=== PATIENT | male | born 1995 | race African-American/Black ===

== ENCOUNTER 2017-04-24 09:28 | Emergency (ER) | payer SELFPAY ==
[~2017-04-24] VITALS: Ht 180.3 cm; Wt 71.8 kg
[2017-04-24] MEDS ORDERED: HYDROCODONE/ACETAMINOPHEN 5-325 MG TABLET PO ONE (10:30)
[2017-04-24 12:25] VITALS: BP 135/79
== END 2017-04-24 12:30 | disposition home or self-care (01) ==
LOC: EMS 09:31
DX: S50.01XA Contusion of right elbow, initial encounter (principal); R03.0 Elevated blood-pressure reading, without diagnosis of hypertension; Z91.018 Allergy to other foods; W18.30XA Fall on same level, unspecified, initial encounter; Y93.51 Activity, roller skating (inline) and skateboarding; Y92.89 Other specified places as the place of occurrence of the external cause; Y99.8 Other external cause status
CPT/HCPCS: 29105; 99284